=== PATIENT | female | born 1965 | race Caucasian/White ===

== ENCOUNTER 2023-09-05 18:13 | Inpatient (IN) | payer MEDICAID ==
[~2023-09-05] VITALS: Ht 160 cm; Wt 56.2 kg
[~2023-09-05 18:13] MED LIST: CIPR500T4; HYDROCODON-ACETAMINOPHEN
[2023-09-05 20:39] LABS: Urine Bacteria None Seen /hpf (None Seen)
[2023-09-05 21:13] LABS: Urine Blood 1+ /uL (Negative); Urine Clarity Clear (Clear); Urine Color Yellow (Yellow); Urine Mucus FEW (None Seen); Urine Protein, UAD 1+ (Negative); Urine Urobilinogen Normal (Negative); Urine WBC 20 /hpf (0 - 5); Urine pH 5.5 (5.0-9.0)
[2023-09-05 21:49] LABS: Basophils # (auto) 0.1 10 ^3/uL (0-0.2); Basophils % (auto) 0.9 % (0.0-2.0); Eosinophils # (auto) 0 10 ^3/uL (0-0.8); Eosinophils % (auto) 0.7 % (0.0-7.0); Hematocrit 36.6 % (36.0-46.0); Hemoglobin 12.3 g/dL (12.2-16.2); Lymphocytes # (auto) 1.3 10 ^3/uL (0.4-5.4); Lymphocytes % (auto) 21.5 % (10.0-50.0); Mean Corpuscular Hemoglobin 31.8 pg (28.0-32.0); Mean Corpuscular Hgb Conc. 33.7 g/dL (32.0-36.0); Mean Corpuscular Volume 94.4 fL (80.0-100.0); Monocytes # (auto) 0.7 10 ^3/uL (0-1.3); Monocytes % (auto) 10.8 % (0.0-12.0); Neutrophils % (auto) 66.1 % (37.0-80.0); Nucleated Red Blood Cells % 0.1 %; Red Blood Cells 3.88 10^6/uL (4.0-5.20); Red Cell Distribution Width 14.6 % (11.8-14.3); White Blood Cell 6.1 10^3/uL (4.4-10.8)
[2023-09-05] MEDS ORDERED: ONDANSETRON HCL 4 MG/2 ML VIAL IV PRN (23:00)
[2023-09-05] MEDS ORDERED: KETOROLAC TROMETH 30 MG/ML 1ML VIAL IV PRN (23:00)
[2023-09-05] MEDS ORDERED: cefTRIAXone 2GM/50ML D5W 50 ML IV ONE (23:00)
[2023-09-05] MEDS ORDERED: TEMAZEPAM 15 MG CAP PO PRN (23:00)
[2023-09-05 23:10] LABS: Alanine Aminotransferase 30 U/L (7-40); Albumin 3.8 g/dL (3.2-4.8); Alkaline Phosphatase 69 U/L (46-116); Anion Gap 5 (5-15); Aspartate Aminotransferase 23 U/L (13-40); BUN/Creatinine Ratio 19.7 (10.0-20.0); Bilirubin, Total 0.5 mg/dL (0.2-1.0); Blood Urea Nitrogen 12 mg/dL (9-23); Carbon Dioxide 26 mmol/L (20-30); Chloride 110 mmol/L (98-107); Glucose 102 mg/dL (74-106); Lipase 49 U/L (12-53); Potassium 3.2 mmol/L (3.5-5.1); Sodium 141 mmol/L (136-145); Total Protein 6.1 g/dL (5.7-8.2)
[2023-09-06] MEDS: cefTRIAXone 1GM/50ML D5W 50 ML IV ONE ×2 (01:11→01:50)
[2023-09-06] MEDS: ONDANSETRON HCL 4 MG/2 ML VIAL IV ONE (01:11)
[2023-09-06] MEDS: KETOROLAC TROMETH 30 MG/ML 1ML VIAL IV ONE (01:12)
[2023-09-06] MEDS: ACETAMINOPHEN 325 MG TAB PO PRN (01:20)
[2023-09-06] MEDS: SODIUM CHLORIDE 0.9% 1,000 ML IV ONE (01:50)
[2023-09-06] MEDS: traMADol HCL 50 MG TAB PO ONE (06:23)
[2023-09-06 06:41] LABS: Basophils # (auto) 0 10 ^3/uL (0-0.2); Basophils % (auto) 0.6 % (0.0-2.0); Eosinophils # (auto) 0 10 ^3/uL (0-0.8); Eosinophils % (auto) 0.6 % (0.0-7.0); Hematocrit 36.4 % (36.0-46.0); Lymphocytes # (auto) 1.6 10 ^3/uL (0.4-5.4); Lymphocytes % (auto) 29.5 % (10.0-50.0); Mean Corpuscular Hemoglobin 31.6 pg (28.0-32.0); Mean Corpuscular Volume 95.6 fL (80.0-100.0); Monocytes # (auto) 0.5 10 ^3/uL (0-1.3); Monocytes % (auto) 9.5 % (0.0-12.0); Neutrophils # (auto) 3.2 10 ^3/uL (1.6-8.6); Neutrophils % (auto) 59.8 % (37.0-80.0); Nucleated Red Blood Cells % 0.2 %; Red Blood Cells 3.81 10^6/uL (4.0-5.20); Red Cell Distribution Width 14.9 % (11.8-14.3); White Blood Cell 5.4 10^3/uL (4.4-10.8)
[2023-09-06 06:52] LABS: Chloride 110 mmol/L (98-107); Potassium 3.1 mmol/L (3.5-5.1); Sodium 140 mmol/L (136-145)
[2023-09-06 06:53] LABS: Anion Gap 4 (5-15); Calcium 8.5 mg/dL (8.7-10.4); Carbon Dioxide 26 mmol/L (20-30)
[2023-09-06 06:58] LABS: BUN/Creatinine Ratio 11.7 (10.0-20.0); Blood Urea Nitrogen 7 mg/dL (9-23); Glucose 88 mg/dL (74-106)
[2023-09-06] MEDS: amLODIPine BESYLATE 5 MG TAB PO SCH (08:30)
[2023-09-06 10:18] VITALS: BP 116/71; PULSE 69; RESP 16; TEMP 97.5; O2SAT 92
[2023-09-06 10:27] VITALS: BP 116/71; PULSE 69; RESP 16; TEMP 97.5
[2023-09-06] MEDS ORDERED: ATOR10TA52 PO (10:38)
[2023-09-06] MEDS ORDERED: [UNRECOGNIZED DRUG - CODE] SC (10:38)
[2023-09-06] MEDS ORDERED: METH2.5T PO (10:38)
[2023-09-06] MEDS ORDERED: FOLI-119 PO (10:39)
[2023-09-06] MEDS ORDERED: METHOTREXATE 2.5 MG TAB PO SCH (11:00)
[2023-09-06] MEDS ORDERED: FOLIC ACID 1 MG TAB PO ONE (11:00)
[2023-09-06] MEDS: HYDROmorphone HCL 2 MG/ML VL/or syr IV PRN (11:20)
[2023-09-06] MEDS: POTASSIUM CHL 20 Meq TABLET PO ONE (11:21)
[2023-09-06 13:00] VITALS: BP 127/76; PULSE 57; RESP 16; TEMP 97.3; O2SAT 100
[2023-09-06] MEDS: SODIUM CHLORIDE 0.9% 1,000 ML IV SCH (13:04)
[2023-09-06 17:00] VITALS: BP 121/80; PULSE 81; RESP 16; TEMP 98.3; O2SAT 97
[2023-09-06 21:00] VITALS: BP 102/64; PULSE 62; RESP 16; TEMP 97.6; O2SAT 97
[2023-09-06] MEDS: FOLIC ACID 1 MG TAB PO SCH (21:46)
[2023-09-06] MEDS: DOCUSATE SOD 100 MG CAP PO SCH (21:46)
[2023-09-06] MEDS: ATORVASTATIN 20 MG TAB PO SCH (21:46)
[2023-09-06] MEDS: METHOTREXATE 2.5 MG TAB PO SCH (21:58)
[2023-09-07 05:00] VITALS: BP 121/80; PULSE 63; RESP 19; TEMP 97.7; O2SAT 100
[2023-09-07 07:13] LABS: Chloride 112 mmol/L (98-107); Potassium 3.8 mmol/L (3.5-5.1); Sodium 141 mmol/L (136-145)
[2023-09-07 07:14] LABS: Anion Gap 6 (5-15); Carbon Dioxide 23 mmol/L (20-30)
[2023-09-07 07:15] LABS: Calcium 8.8 mg/dL (8.7-10.4)
[2023-09-07 07:20] LABS: BUN/Creatinine Ratio 12.7 (10.0-20.0); Blood Urea Nitrogen 7 mg/dL (9-23); Glucose 86 mg/dL (74-106)
[2023-09-07 08:10] VITALS: BP 125/75; PULSE 64; RESP 18; TEMP 97.7
[2023-09-07 08:58] LABS: INR 0.98 (0.9-1.15); Partial Thromboplastin Time 25.7 SEC (24.5-34.5); Prothrombin Time 10.3 sec (9.3-11.8)
[2023-09-07 09:00] VITALS: BP 125/75; PULSE 64; RESP 18; TEMP 97.7; O2SAT 99
[2023-09-07 13:00] VITALS: BP 127/67; PULSE 56; RESP 18; TEMP 97.8; O2SAT 99
[2023-09-07 20:05] VITALS: BP 133/67; PULSE 57; RESP 16; TEMP 97.9
[2023-09-07 21:00] VITALS: BP 133/67; PULSE 57; RESP 16; TEMP 97.8; O2SAT 98
[2023-09-08] VITALS (11 sets, daily range): BP systolic 111–158; BP diastolic 57–90; PULSE 56–75; RESP 12–20; TEMP 97.4–98.3; O2SAT 96–100
[2023-09-08 07:13] LABS: Basophils # (auto) 0 10 ^3/uL (0-0.2); Basophils % (auto) 0.5 % (0.0-2.0); Eosinophils # (auto) 0 10 ^3/uL (0-0.8); Eosinophils % (auto) 0.5 % (0.0-7.0); Hematocrit 31.6 % (36.0-46.0); Hemoglobin 10.4 g/dL (12.2-16.2); Lymphocytes % (auto) 19.8 % (10.0-50.0); Mean Corpuscular Hemoglobin 31.8 pg (28.0-32.0); Mean Corpuscular Hgb Conc. 32.9 g/dL (32.0-36.0); Mean Corpuscular Volume 96.6 fL (80.0-100.0); Monocytes # (auto) 0.4 10 ^3/uL (0-1.3); Monocytes % (auto) 7.9 % (0.0-12.0); Neutrophils # (auto) 3.5 10 ^3/uL (1.6-8.6); Neutrophils % (auto) 71.3 % (37.0-80.0); Nucleated Red Blood Cells % 0.1 %; Red Blood Cells 3.27 10^6/uL (4.0-5.20); Red Cell Distribution Width 14.6 % (11.8-14.3); White Blood Cell 4.9 10^3/uL (4.4-10.8)
[2023-09-08 07:33] LABS: Alanine Aminotransferase 17 U/L (7-40); Albumin 2.1 g/dL (3.2-4.8); Alkaline Phosphatase 38 U/L (46-116); Anion Gap 5 (5-15); Aspartate Aminotransferase 10 U/L (13-40); Bilirubin, Total 0.4 mg/dL (0.2-1.0); Blood Urea Nitrogen 6 mg/dL (9-23); Carbon Dioxide 19 mmol/L (20-30); Glucose 61 mg/dL (74-106); Potassium 2.7 mmol/L (3.5-5.1); Total Protein 3.5 g/dL (5.7-8.2)
[2023-09-08 07:37] LABS: Chloride 122 mmol/L (98-107); INR 1.15 (0.9-1.15); Partial Thromboplastin Time 29.9 SEC (24.5-34.5); Sodium 146 mmol/L (136-145)
[2023-09-08 07:38] LABS: Calcium 5.6 mg/dL (8.7-10.4)
[2023-09-08] MEDS: MIDAZOLAM HCL 2MG/2ML 2ml VIAL (1mg/ml) IV ONE (08:30)
[2023-09-08] MEDS: fentaNYL CITRATE 100 MCG/2 ML VL IV ONE (08:30)
[2023-09-08] MEDS: POTASSIUM CHL 20 Meq TABLET PO ONE ×2 (08:35→08:53)
[2023-09-08] MEDS: MIDAZOLAM HCL 2MG/2ML 2ml VIAL (1mg/ml) ONE (08:42)
[2023-09-08] MEDS: fentaNYL CITRATE 100 MCG/2 ML VL ONE (08:42)
[2023-09-08] MEDS: D5W/SOD CHL 0.45%/KCL 20MEQ 1,000 ML IV SCH (08:45)
[2023-09-08] MEDS: cefTRIAXone 1GM/50ML D5W 50 ML IV ONE (09:19)
[2023-09-08] MEDS: LIDOCAINE 2%HCL (LOCAL ANESTH.) INJ 20ML MDV ONE (09:28)
[2023-09-08] MEDS: IOHEXOL 350 MG/ML 100ML IJ ONE (09:29)
[2023-09-08] MEDS: LACTULOSE 20Gm/30ML SOLN PO ONE (14:00)
[2023-09-08] MEDS: HYDROmorphone HCL 2 MG/ML VL/or syr IV PRN (14:23)
[2023-09-08] MEDS: ceFAZolin 1GM/50ML 50 ML IV SCH (14:50)
[2023-09-08] MEDS: POTASSIUM CHL 20MEQ/100ML 100 ML IV ONE (15:53)
[2023-09-09 01:00] VITALS: BP 133/70; PULSE 71; RESP 19; TEMP 98.1; O2SAT 99
[2023-09-09 05:00] VITALS: BP 136/62; PULSE 68; RESP 17; TEMP 97.8; O2SAT 99
[2023-09-09 07:21] LABS: Calcium 8.8 mg/dL (8.5-10.1); Potassium 4.2 mmol/L (3.5-5.1); Sodium 138 mmol/L (136-145)
[2023-09-09 07:22] LABS: Anion Gap 8 (5-15); Carbon Dioxide 22 mmol/L (20-30)
[2023-09-09 07:27] LABS: BUN/Creatinine Ratio 9.9 (10.0-20.0); Blood Urea Nitrogen 7 mg/dL (9-23); Glucose 100 mg/dL (74-106)
[2023-09-09 07:31] LABS: Chloride 108 mmol/L (98-107)
[2023-09-09 07:48] LABS: Magnesium 2.1 mg/dL (1.6-2.6)
[2023-09-09 09:00] VITALS: BP 131/66; PULSE 72; RESP 18; TEMP 98.3; O2SAT 99
[2023-09-09] MEDS: D5W/SOD CHL 0.45%/KCL 20MEQ 1,000 ML IV SCH (10:30)
[2023-09-09 13:00] VITALS: BP 129/68; PULSE 69; RESP 18; TEMP 97.9; O2SAT 99
[2023-09-09 17:00] VITALS: BP 120/67; PULSE 68; RESP 18; TEMP 97.9; O2SAT 99
[2023-09-09 21:00] VITALS: BP 130/75; PULSE 76; RESP 20; TEMP 98.1; O2SAT 96
[2023-09-10] VITALS (7 sets, daily range): BP systolic 115–143; BP diastolic 57–86; PULSE 71–75; RESP 16–20; TEMP 97.7–98.1; O2SAT 97–100
[2023-09-10 06:26] LABS: Anion Gap 8 (5-15); Carbon Dioxide 24 mmol/L (20-30); Chloride 106 mmol/L (98-107); Potassium 4.1 mmol/L (3.5-5.1); Sodium 138 mmol/L (136-145)
[2023-09-10 06:32] LABS: Glucose 105 mg/dL (74-106)
[2023-09-10 06:34] LABS: BUN/Creatinine Ratio 8.3 (10.0-20.0); Blood Urea Nitrogen < 5 mg/dL (9-23)
[2023-09-11] VITALS (9 sets, daily range): BP systolic 114–157; BP diastolic 73–93; PULSE 73–98; RESP 12–20; TEMP 97.5–98.2; O2SAT 95–100
[2023-09-11 11:47] LABS: Chloride 107 mmol/L (98-107); Potassium 4.2 mmol/L (3.5-5.1); Sodium 137 mmol/L (136-145)
[2023-09-11 11:48] LABS: Anion Gap 3 (5-15); Carbon Dioxide 27 mmol/L (20-30)
[2023-09-11 11:49] LABS: Calcium 9.1 mg/dL (8.7-10.4)
[2023-09-11 11:53] LABS: Glucose 95 mg/dL (74-106)
[2023-09-11 12:17] LABS: BUN/Creatinine Ratio 9.1 (10.0-20.0); Blood Urea Nitrogen < 5 mg/dL (9-23)
[2023-09-11] MEDS: BUPIVACAINE W/ EPINEPH 0.5% INJ 50ML MDV IJ ONE (15:07)
[2023-09-11] MEDS: LIDOCAINE 1%-Mpf/Epinephrine 1:200,000 30ml VIAL ONE (15:07)
[2023-09-11] MEDS: IOHEXOL 300 MG/ML 100ML BOTTLE IJ ONE (15:07)
[2023-09-11] MEDS ORDERED: GLYCOPYRROLATE 0.2 MG/ML 1ML VIAL ONE (15:09)
[2023-09-11] MEDS ORDERED: DexAMETHasone SOD PHOS 10MG/1ML VIAL INJ ONE (15:09)
[2023-09-11] MEDS ORDERED: ROCURONIUM 10MG/ML 10ML VIAL IV ONE (15:09)
[2023-09-11] MEDS ORDERED: PROPOFOL 10 MG/ML 20 ML IV ONE ×2 (15:09→15:10)
[2023-09-11] MEDS ORDERED: ONDANSETRON HCL 4 MG/2 ML VIAL ONE (15:09)
[2023-09-11] MEDS ORDERED: LIDOCAINE 2% (LOCAL ANESTH.) PF 5ml SDV ONE (15:09)
[2023-09-11] MEDS ORDERED: HYDROmorphone HCL 2 MG/ML VL/or syr ONE (15:09)
[2023-09-11] MEDS ORDERED: MIDAZOLAM HCL 2MG/2ML 2ml VIAL (1mg/ml) ONE (15:09)
[2023-09-11] MEDS ORDERED: fentaNYL CITRATE 100 MCG/2 ML VL ONE (15:09)
[2023-09-11] MEDS ORDERED: KETOROLAC TROMETH 30 MG/ML 1ML VIAL ONE (15:09)
[2023-09-11] MEDS ORDERED: KETAMINE 50mg/ML 10ml Vial 10 ML ONE (15:15)
[2023-09-11] MEDS ORDERED: HYDROCORTISONE SOD SUCC 100 MG/2ML INJ VIAL ONE (16:17)
[2023-09-11] MEDS ORDERED: ceFAZolin 1GM VL ONE (16:56)
[2023-09-11] MEDS: FAMOTIDINE (10MG/ML) 2ML VL IV ONE (17:38)
[2023-09-11] MEDS: MEPERIDINE HCL (25 MG/ML) 1ML VIAL ONE (18:43)
[2023-09-11] MEDS ORDERED: MEPERIDINE HCL (25 MG/ML) 1ML VIAL IM ONE (18:45)
[2023-09-11] MEDS ORDERED: HYDROmorphone HCL 2 MG/ML VL/or syr IV PRN (18:45)
[2023-09-11] MEDS: HYDROmorphone HCL 2 MG/ML VL/or syr IV ONE (23:12)
[2023-09-12] VITALS (7 sets, daily range): BP systolic 108–131; BP diastolic 53–70; PULSE 68–91; RESP 16–17; TEMP 98–98.5; O2SAT 97–100
[2023-09-12 07:01] LABS: Anion Gap 5 (5-15); Carbon Dioxide 25 mmol/L (20-30); Chloride 108 mmol/L (98-107); Potassium 3.9 mmol/L (3.5-5.1); Sodium 138 mmol/L (136-145)
[2023-09-12 07:03] LABS: Calcium 8.8 mg/dL (8.5-10.1)
[2023-09-12 07:08] LABS: BUN/Creatinine Ratio 10.7 (10.0-20.0); Blood Urea Nitrogen 6 mg/dL (9-23); Glucose 94 mg/dL (74-106)
[2023-09-12] MEDS ORDERED: MEPERIDINE HCL (25 MG/ML) 1ML VIAL IV SCH (10:00)
[2023-09-12] MEDS: HYDROcodone-ACET 5/325MG TAB PO PRN (14:59)
[2023-09-12 19:31] LABS: Basophils # (auto) 0.1 10 ^3/uL (0-0.2); Eosinophils # (auto) 0.1 10 ^3/uL (0-0.8); Eosinophils % (auto) 1.5 % (0.0-7.0); Hematocrit 37.4 % (36.0-46.0); Hemoglobin 12.6 g/dL (12.2-16.2); Lymphocytes # (auto) 1.3 10 ^3/uL (0.4-5.4); Lymphocytes % (auto) 14.9 % (10.0-50.0); Mean Corpuscular Hemoglobin 31.6 pg (28.0-32.0); Mean Corpuscular Hgb Conc. 33.6 g/dL (32.0-36.0); Mean Corpuscular Volume 94.1 fL (80.0-100.0); Monocytes # (auto) 0.9 10 ^3/uL (0-1.3); Monocytes % (auto) 9.5 % (0.0-12.0); Neutrophils # (auto) 6.6 10 ^3/uL (1.6-8.6); Neutrophils % (auto) 73.1 % (37.0-80.0); Red Blood Cells 3.98 10^6/uL (4.0-5.20); Red Cell Distribution Width 14.5 % (11.8-14.3); White Blood Cell 9.1 10^3/uL (4.4-10.8)
[2023-09-12 19:54] LABS: Chloride 105 mmol/L (98-107); Potassium 3.5 mmol/L (3.5-5.1); Sodium 139 mmol/L (136-145)
[2023-09-12 19:55] LABS: Anion Gap 6 (5-15); Calcium 8.8 mg/dL (8.5-10.1); Carbon Dioxide 28 mmol/L (20-30)
[2023-09-12 20:00] LABS: BUN/Creatinine Ratio 9.1 (10.0-20.0); Blood Urea Nitrogen 6 mg/dL (9-23); Glucose 147 mg/dL (74-106)
[2023-09-13] VITALS (7 sets, daily range): BP systolic 92–122; BP diastolic 53–75; PULSE 72–91; RESP 17–81; TEMP 98–98.7; O2SAT 96–99
[2023-09-14] VITALS (8 sets, daily range): BP systolic 106–119; BP diastolic 49–74; PULSE 70–85; RESP 16–20; TEMP 97.8–98.4; O2SAT 96–98
[2023-09-14 06:47] LABS: Chloride 107 mmol/L (98-107); Potassium 3.7 mmol/L (3.5-5.1); Sodium 139 mmol/L (136-145)
[2023-09-14 06:48] LABS: Anion Gap 6 (5-15); Calcium 8.9 mg/dL (8.5-10.1); Carbon Dioxide 26 mmol/L (20-30)
[2023-09-14 06:53] LABS: Glucose 93 mg/dL (74-106)
[2023-09-14 07:02] LABS: BUN/Creatinine Ratio 9.1 (10.0-20.0); Blood Urea Nitrogen < 5 mg/dL (9-23)
[2023-09-14 07:12] LABS: Basophils # (auto) 0 10 ^3/uL (0-0.2); Basophils % (auto) 0.7 % (0.0-2.0); Eosinophils # (auto) 0.1 10 ^3/uL (0-0.8); Hematocrit 37.2 % (36.0-46.0); Hemoglobin 12.2 g/dL (12.2-16.2); Lymphocytes # (auto) 1.1 10 ^3/uL (0.4-5.4); Lymphocytes % (auto) 17.3 % (10.0-50.0); Mean Corpuscular Hemoglobin 31.6 pg (28.0-32.0); Mean Corpuscular Hgb Conc. 32.9 g/dL (32.0-36.0); Mean Corpuscular Volume 96.1 fL (80.0-100.0); Monocytes # (auto) 0.7 10 ^3/uL (0-1.3); Monocytes % (auto) 10.5 % (0.0-12.0); Neutrophils # (auto) 4.5 10 ^3/uL (1.6-8.6); Neutrophils % (auto) 69.5 % (37.0-80.0); Nucleated Red Blood Cells % 0.1 %; Red Blood Cells 3.87 10^6/uL (4.0-5.20); Red Cell Distribution Width 14.3 % (11.8-14.3); White Blood Cell 6.5 10^3/uL (4.4-10.8)
[2023-09-15] VITALS (7 sets, daily range): BP systolic 112–126; BP diastolic 53–80; PULSE 66–109; RESP 16–20; TEMP 97.8–99.3; O2SAT 92–99
[2023-09-16] VITALS (7 sets, daily range): BP systolic 99–131; BP diastolic 60–81; PULSE 64–90; RESP 18–20; TEMP 97.6–98.4; O2SAT 93–98
[2023-09-16] MEDS: POLYETHYLENE GLYCOL 17 GM PWDR PO PRN (17:35)
[2023-09-17] VITALS (8 sets, daily range): BP systolic 104–126; BP diastolic 55–83; PULSE 69–92; RESP 17–19; TEMP 97.3–98.1; O2SAT 95–100
[2023-09-17] MEDS: MILK OF MAGNESIA 30ML SUSP PO ONE (16:17)
[2023-09-18 01:00] VITALS: BP 108/76; PULSE 76; RESP 17; TEMP 97.8; O2SAT 95
[2023-09-18 05:00] VITALS: BP 119/82; PULSE 70; RESP 18; TEMP 98.2; O2SAT 99
[2023-09-18 08:00] VITALS: BP 120/60; PULSE 73; RESP 17; TEMP 97.8; O2SAT 99
[2023-09-18 09:00] VITALS: BP 120/60; PULSE 73; RESP 17; TEMP 97.8; O2SAT 99
[2023-09-18 11:30] VITALS: BP 120/60; PULSE 73; RESP 17; TEMP 97.8; O2SAT 99
== END 2023-09-18 11:47 | disposition home or self-care (01) | DRG 443 ==
LOC: ER 18:13 → OVERFLOW 23:01 → CENTRAL 09-06 10:18
PROVIDERS: ADMIT Internal Medicine Geriatric Medicine; ATTEND Internal Medicine Geriatric Medicine
PROC: 0TC18ZZ Extirpation of Matter from Left Kidney, Via Natural or Artificial Opening Endoscopic (ICD-10-PCS; principal; 2023-09-05)
PROC: 0T9130Z Drainage of Left Kidney with Drainage Device, Percutaneous Approach (ICD-10-PCS; 2023-09-05)
DX: N13.2 Hydronephrosis with renal and ureteral calculous obstruction (principal); M34.9 Systemic sclerosis, unspecified; E87.6 Hypokalemia; M06.9 Rheumatoid arthritis, unspecified; Z83.3 Family history of diabetes mellitus; Z93.6 Other artificial openings of urinary tract status; Z88.5 Allergy status to narcotic agent; Z90.49 Acquired absence of other specified parts of digestive tract
CPT/HCPCS: 36415; 71045; 74018; 74176; 74425; 76000; 76775; 76942; 80048; 80053; 81001; 81025; 82360; 83690; 83735; 85025; 85610; 85730; 86850; 86900; 86901; 87086; 93005; 99152; G0378; J0690; J1100; J1885; J2001; J2250; J2405; J2704; J3480; J3490

== ENCOUNTER → 2023-10-10 | Outpatient (CLI) | payer MEDICAID ==
[~2023-10-10] MED LIST changes: +ATOR10TA52 PO; -CIPR500T4; +FOLI-119 PO; -HYDROCODON-ACETAMINOPHEN; +METH2.5T PO; +[UNRECOGNIZED DRUG - CODE] SC
[2023-10-10 09:20] LABS: Urine Bacteria None Seen /hpf (None Seen)
[2023-10-10 09:34] LABS: Urine Amorphous Crystal FEW /hpf (None Seen); Urine Blood Negative /uL (Negative); Urine Clarity Clear (Clear); Urine Color Yellow (Yellow); Urine Mucus FEW (None Seen); Urine Protein, UAD TRACE (Negative); Urine Urobilinogen Normal (Negative); Urine WBC 2 /hpf (0 - 5)
== END | disposition home or self-care (01) ==
LOC: LAB 09:19
PROVIDERS: ATTEND Urology
DX: N39.0 Urinary tract infection, site not specified (principal)
CPT/HCPCS: 81001; 87086

== ENCOUNTER 2024-03-07 05:37 | Day surgery (SDC) | payer MEDICAID ==
[2024-03-06 09:17] LABS: Urine Bacteria None Seen /hpf (None Seen)
[2024-03-06 09:28] LABS: Basophils # (auto) 0 10 ^3/uL (0-0.2); Basophils % (auto) 1.1 % (0.0-2.0); Eosinophils # (auto) 0.1 10 ^3/uL (0-0.8); Eosinophils % (auto) 1.8 % (0.0-7.0); Hematocrit 45.7 % (36.0-46.0); Lymphocytes # (auto) 1.6 10 ^3/uL (0.4-5.4); Lymphocytes % (auto) 35.8 % (10.0-50.0); Mean Corpuscular Hemoglobin 29.8 pg (28.0-32.0); Mean Corpuscular Hgb Conc. 32.8 g/dL (32.0-36.0); Mean Corpuscular Volume 90.8 fL (80.0-100.0); Monocytes # (auto) 0.4 10 ^3/uL (0-1.3); Neutrophils # (auto) 2.2 10 ^3/uL (1.6-8.6); Neutrophils % (auto) 51.3 % (37.0-80.0); Nucleated Red Blood Cells % 0.1 %; Platelet Count (auto) 265 10^3/uL (140-450); Red Blood Cells 5.04 10^6/uL (4.0-5.20); Red Cell Distribution Width 13.5 % (11.8-14.3); White Blood Cell 4.4 10^3/uL (4.4-10.8)
[2024-03-06 09:42] LABS: INR 0.96 (0.9-1.15); Partial Thromboplastin Time 23.4 SEC (24.5-34.5); Prothrombin Time 10.2 sec (9.3-11.8)
[2024-03-06 09:47] LABS: Urine Blood TRACE /uL (Negative); Urine Clarity Clear (Clear); Urine Color Yellow (Yellow); Urine Hyaline Cast FEW /lpf (0 - 2); Urine Mucus FEW (None Seen); Urine Protein, UAD 1+ (Negative); Urine Specific Gravity 1.023 (1.001-1.035); Urine Urobilinogen Normal (Negative); Urine WBC 25 /hpf (0 - 5)
[2024-03-06 09:55] LABS: Alanine Aminotransferase 27 U/L (7-40); Albumin 4.4 g/dL (3.2-4.8); Alkaline Phosphatase 96 U/L (46-116); Anion Gap 7 (5-15); Aspartate Aminotransferase 28 U/L (13-40); BUN/Creatinine Ratio 14.9 (10.0-20.0); Bilirubin, Total 0.3 mg/dL (0.2-1.0); Blood Urea Nitrogen 10 mg/dL (9-23); Calcium 10.2 mg/dL (8.7-10.4); Carbon Dioxide 28 mmol/L (20-31); Chloride 106 mmol/L (98-107); Glucose 85 mg/dL (74-106); Potassium 3.6 mmol/L (3.5-5.1); Sodium 141 mmol/L (136-145); Total Protein 7.4 g/dL (5.7-8.2)
[~2024-03-07] VITALS: Ht 162.6 cm; Wt 59.0 kg
[~2024-03-07 05:37] MED LIST changes: -ATOR10TA52 PO; -FOLI-119 PO; +LEFL20TA PO; +MECL-90 PO; -METH2.5T PO
[2024-03-07] MEDS ORDERED: ceFAZolin 2 GM/D5W100ml 100 ML IV ONE (06:33)
[2024-03-07] MEDS ORDERED: KETOROLAC TROMETH 30 MG/ML 1ML VIAL ONE (07:15)
[2024-03-07] MEDS ORDERED: LIDOCAINE 2% (LOCAL ANESTH.) PF 5ml SDV ONE (07:15)
[2024-03-07] MEDS ORDERED: ONDANSETRON HCL 4 MG/2 ML VIAL ONE (07:15)
[2024-03-07] MEDS ORDERED: DexAMETHasone SOD PHOS 10MG/1ML VIAL INJ ONE (07:15)
[2024-03-07] MEDS ORDERED: GLYCOPYRROLATE 0.2 MG/ML 1ML VIAL ONE (07:15)
[2024-03-07] MEDS ORDERED: IOHEXOL 300 MG/ML 100ML BOTTLE IJ ONE (07:15)
[2024-03-07] MEDS ORDERED: LIDOCAINE HCL 2% TOP JELLY 5ML TOP ONE (07:15)
[2024-03-07] MEDS ORDERED: PROPOFOL 10 MG/ML 20 ML IV ONE (07:15)
[2024-03-07] MEDS ORDERED: KETAMINE 50mg/ML 1ml syringe ONE (07:16)
[2024-03-07] MEDS ORDERED: ESMOLOL HCL 10 ML IV ONE (07:54)
[2024-03-07] MEDS ORDERED: diphenhdrAMINE HCL 50 MG/1 ML VL ONE (07:58)
[2024-03-07 08:32] VITALS: PULSE 71; RESP 11; TEMP 98.5; O2SAT 100
[2024-03-07] MEDS ORDERED: ONDANSETRON HCL 4 MG/2 ML VIAL IV PRN (08:45)
[2024-03-07] MEDS ORDERED: fentaNYL CITRATE 100 MCG/2 ML VL IV PRN (08:45)
[2024-03-07] MEDS ORDERED: hydrALAZINE HCL 20 MG/ML VL IV PRN (08:45)
[2024-03-07] MEDS ORDERED: HYDROmorphone HCL 2 MG/ML VL/or syr IV PRN (08:45)
[2024-03-07] MEDS ORDERED: NALOXONE HCL 0.4 MG/ML VIAL IV PRN (08:45)
[2024-03-07] MEDS ORDERED: ePHEDrine SULFATE 50 MG/ML AMP IV PRN (08:45)
[2024-03-07] MEDS ORDERED: oxyCODONE HCL 5MG TAB PO PRN (08:45)
[2024-03-07] MEDS ORDERED: FLUMAZENIL 0.1 MG/ML INJ 10ML MDV IV PRN (08:45)
[2024-03-07 09:20] VITALS: BP 134/71; PULSE 60; RESP 14; O2SAT 99
== END 2024-03-07 09:30 | disposition home or self-care (01) ==
LOC: SUR 05:37
PROVIDERS: ATTEND Urology
DX: N20.0 Calculus of kidney (principal); Z90.710 Acquired absence of both cervix and uterus; Z98.890 Other specified postprocedural states; Z88.6 Allergy status to analgesic agent; Z91.030 Bee allergy status; Z88.8 Allergy status to other drugs, medicaments and biological substances; Z91.018 Allergy to other foods; Z83.3 Family history of diabetes mellitus
CPT/HCPCS: 36415; 50590; 74176; 80053; 81001; 85025; 85610; 85730; 87086; C1769; J1100; J1200; J1885; J2003; J2405; J2704; J7030; A4565